=== PATIENT | female | born 1940 | race Caucasian/White ===

== ENCOUNTER 2020-09-21 05:11 | Emergency (ER) | payer OTHER ==
[~2020-09-21] VITALS: Ht 167.6 cm; Wt 154.2 kg
--- NOTE | 2020-09-21 05:25 | NUR ---
pt bibra c/o left elbow pain and rt middle digit knuckle abrasion s/p trip and fall. Pt [id number] breathing evenly and unlabored. Per pt, she was walking around her bed with the lights off and her foot caught on something and she stumbled. Pt attached tomonitor and pox. SKin is warm and dry. Pt given blanket and call light within reach
--- NOTE | 2020-09-21 05:39 | NUR ---
xray at bedside
--- NOTE | 2020-09-21 06:33 | NUR ---
xray6 at bedside
[2020-09-21] MEDS ORDERED: ACET-2605 PO (07:19)
--- NOTE | 2020-09-21 07:27 | NUR ---
Patient discharged to home in stable condition. Written and verbal after care instructions given. Patient verbalizes understanding of instruction. Patient will call roommate to pick her up.
[2020-09-21] MEDS ORDERED: ACETAMINOPHEN 325 MG TABLET PO ONE (07:30)
[2020-09-21] MEDS ORDERED: TDAP [DIPH/PERTUSSIS/TET] 0.5 ML VIAL IM ONE (07:30)
[2020-09-21] MEDS ORDERED: BACITRACIN ZINC OINT PACKET 1 EA PACKET TP ONE (07:30)
[2020-09-21] MEDS ORDERED: ACETAMINOPHEN 325 MG TABLET ONE (07:32)
[2020-09-21 07:57] VITALS: BP 131/77
== END 2020-09-21 07:58 | disposition home or self-care (01) ==
LOC: ER 05:11
DX: S52.122A Displaced fracture of head of left radius, initial encounter for closed fracture (principal); S52.612A Displaced fracture of left ulna styloid process, initial encounter for closed fracture; S60.511A Abrasion of right hand, initial encounter; I10 Essential (primary) hypertension; Z88.0 Allergy status to penicillin; W01.0XXA Fall on same level from slipping, tripping and stumbling without subsequent striking against object, initial encounter; Y93.89 Activity, other specified; Y92.098 Other place in other non-institutional residence as the place of occurrence of the external cause; Y99.8 Other external cause status
CPT/HCPCS: 73080-TC; 73110